=== PATIENT | male | born 1965 | race African-American/Black ===

== ENCOUNTER 2018-01-06 15:12 | Emergency (ER) | payer OTHER ==
[2018-01-06] MEDS ORDERED: Fluorescein Opthalmic Strip ONE ×2 (15:25→15:35)
[2018-01-06] MEDS ORDERED: Proparacaine 0.5% Opth 15 ML BOT ONE (15:25)
[2018-01-06] MEDS ORDERED: Adacel (T-DAP) 0.5 ML VIAL ONE (16:40)
== END 2018-01-06 17:03 | disposition home or self-care (01) ==
LOC: ERS 15:12
DX: S05.02XA Injury of conjunctiva and corneal abrasion without foreign body, left eye, initial encounter (principal); S05.01XA Injury of conjunctiva and corneal abrasion without foreign body, right eye, initial encounter; T22.112A Burn of first degree of left forearm, initial encounter; T22.111A Burn of first degree of right forearm, initial encounter; X58.XXXA Exposure to other specified factors, initial encounter
CPT/HCPCS: 90471; 90715